=== PATIENT | male | born 1955 | race Caucasian/White ===

== ENCOUNTER → 2024-04-18 13:47 | Outpatient (BNVA) | payer OTHER, SELFPAY | PROVIDERS: Visit Provider Podiatrist Foot & Ankle Surgery | DX: S92.011A Displaced fracture of body of right calcaneus, initial encounter for closed fracture; S93.314A Dislocation of tarsal joint of right foot, initial encounter; X58.XXXA Exposure to other specified factors, initial encounter | CPT/HCPCS: 29405; 73610; 99204 ==

== ENCOUNTER 2024-04-20 07:55 | Outpatient (CLI) | payer OTHER, SELFPAY ==
--- NOTE | 2024-04-20 08:00 | CT_ITS ---
WS: [id number] CT RIGHT FOOT AND ANKLE, NONCONTRAST. HISTORY: fracture/dislocation Technique: All CT scans at [facility] use at least one of these dose optimization techniques: automated exposure control; mA and/or kV adjustment per patient size (includes targeted exams where dose is matched to clinical indication); or iterative reconstruction. DLP: 170.21 mGy COMPARISON: RIGHT ankle radiographs 04/18/2024 Markedly abnormal appearance of the foot. There is loss of the normal arch of the foot and plantar di splacement of the tarsal bones. Some of this may be due to diabetic neuropathy but there has also bee n a prior injury with fractures which may be contributing to the deformity and loss of the normal arc h. Oblique, healed fracture with abundant callus formation distal third of the fibula. Widening of the s yndesmosis to 7 mm. Normal medial ankle mortise at 3 mm. There is asymmetric widening of the posterio r ankle mortise/posterior tibiotalar joint space. The distal fibula contacts the calcaneus. There are multiple osseous fragments and fractures predomin antly involving the anterior calcaneus. There is an avulsion and displacement of the anterior process of the calcaneus. There are multiple bony fragments at the talocalcaneal articulation. Slight invagination of the talus inferiorly and medially. The talus is abnormally oriented. Surface i rregularity of the medial talus is probably from an old fracture. Abnormal position of the navicular. There is slight lateral subluxation of the navicular and also the inferior displacement. Widening of the talonavicular joint. Cuboid appears satisfactory aligned with the fourth and fifth metatarsals. Tiny avulsion fractures along the proximal articular surface of th e cuboid. Cuneiforms appear properly aligned with the metatarsals. No widening of the Lisfranc joint. No metatarsal fractures. Phalanges appear appropriate. There is extensive soft tissue edema surrounding the ankle and foot. This is diffuse edema with soft tissue thickening. May be posttraumatic. Post infectious edema may appear similar. There are multiple displaced osseous fragments in the lateral soft tissues. These fractures are at le ast 16 mm from the parent bone. CT/CT foot ankle RT wo con IMPRESSION: 1. Severe, deformity of the RIGHT foot and ankle. May be a combination of a di abetic neuropathy with fractures. 2. Loss of the normal arch of the foot with plantar displacement of the tarsal bones. 3. Healed oblique fracture distal third of the fibula. The distal tip of the f ibula abuts the calcaneus. 4. Widening of the syndesmosis to 7 mm. 5. Asymmetric widening of the posterior tibiotalar joint. 6. Comminuted fractures involving the anterior calcaneus. Fractures extend int o the talocalcaneal articulation and are displaced. The anterior calcaneal proc ess is displaced also. 7. Plantar invagination of the talus. The talus is displaced inferiorly and me dially. 8. Subluxation and inferior displacement of the navicular with widening of the talonavicular joint. Small avulsion fractures near the proximal articular surf barak of the cuboid. 9. No widening of the Lisfranc joint. 10. Extensive soft tissue edema around the ankle and foot. This may be posttra umatic or postinfectious. 11. Displaced osseous fragments in the lateral soft tissues of the ankle. 12. Parent bone is not definite due to the significant displacement of the fra gments but may be the calcaneus.
== END 2024-04-20 07:56 | disposition home or self-care (01) ==
LOC: RAD 07:56
PROVIDERS: Visit Provider Podiatrist Foot & Ankle Surgery
DX: M21.6X1 Other acquired deformities of right foot (principal); S93.31 Subluxation and dislocation of tarsal joint; S92.101A Unspecified fracture of right talus, initial encounter for closed fracture; S92.251A Displaced fracture of navicular [scaphoid] of right foot, initial encounter for closed fracture
CPT/HCPCS: 73700; 76377

== ENCOUNTER → 2024-04-26 14:57 | Outpatient (BNVA) | payer OTHER, SELFPAY | PROVIDERS: Visit Provider Podiatrist Foot & Ankle Surgery | DX: S93.314A Dislocation of tarsal joint of right foot, initial encounter (principal); S92.011A Displaced fracture of body of right calcaneus, initial encounter for closed fracture; X58.XXXA Exposure to other specified factors, initial encounter | CPT/HCPCS: 29405; 99213 ==

== ENCOUNTER → 2024-05-10 12:13 | Outpatient (BNVA) | payer OTHER, SELFPAY | PROVIDERS: Visit Provider Podiatrist Foot & Ankle Surgery | DX: S93.314A Dislocation of tarsal joint of right foot, initial encounter (principal); S92.011A Displaced fracture of body of right calcaneus, initial encounter for closed fracture; X58.XXXA Exposure to other specified factors, initial encounter; E11.9 Type 2 diabetes mellitus without complications | CPT/HCPCS: 29405; 99213 ==

== ENCOUNTER → 2024-05-24 10:15 | Outpatient (BNVA) | payer OTHER, SELFPAY | PROVIDERS: Visit Provider Podiatrist Foot & Ankle Surgery | DX: S93.314A Dislocation of tarsal joint of right foot, initial encounter (principal); S92.011A Displaced fracture of body of right calcaneus, initial encounter for closed fracture; X58.XXXA Exposure to other specified factors, initial encounter | CPT/HCPCS: 99213 ==

== ENCOUNTER 2024-06-22 08:59 | Outpatient (CLI) | payer OTHER, SELFPAY | END 2024-06-22 09:00 | disposition home or self-care (01) | LOC: RAD 08:59 | PROVIDERS: PCP Family Medicine; Visit Provider Podiatrist Foot & Ankle Surgery | DX: R09.89 Other specified symptoms and signs involving the circulatory and respiratory systems (principal) | CPT/HCPCS: 93923 ==

== ENCOUNTER 2024-06-22 10:04 | Outpatient (CLI) | payer OTHER, SELFPAY | END 2024-06-22 10:05 | disposition home or self-care (01) | LOC: RAD 10:06 | PROVIDERS: PCP Family Medicine; Visit Provider Podiatrist Foot & Ankle Surgery | DX: S93.314A Dislocation of tarsal joint of right foot, initial encounter (principal); S92.011A Displaced fracture of body of right calcaneus, initial encounter for closed fracture; X58.XXXA Exposure to other specified factors, initial encounter | CPT/HCPCS: 29405 ==

== ENCOUNTER → 2024-11-27 07:59 | Outpatient (BNVA) | payer OTHER, SELFPAY | PROVIDERS: PCP Family Medicine; Visit Provider Podiatrist Foot & Ankle Surgery | DX: E11.8 Type 2 diabetes mellitus with unspecified complications (principal); S93.314A Dislocation of tarsal joint of right foot, initial encounter; S92.011A Displaced fracture of body of right calcaneus, initial encounter for closed fracture; L97.512 Non-pressure chronic ulcer of other part of right foot with fat layer exposed; E11.42 Type 2 diabetes mellitus with diabetic polyneuropathy; L60.3 Nail dystrophy; X58.XXXA Exposure to other specified factors, initial encounter; E11.621 Type 2 diabetes mellitus with foot ulcer | CPT/HCPCS: 11721; 29515 ==